=== PATIENT | female | born 1965 | race Caucasian/White ===

== ENCOUNTER 2020-11-22 11:48 | Emergency (ER) | payer OTHER ==
[~2020-11-22] VITALS: Ht 162.5 cm; Wt 59.0 kg
[2020-11-22] MEDS ORDERED: CEPHALEXIN500 M1 PO (15:35)
[2020-11-22] MEDS ORDERED: SEPTDS PO (15:35)
[2020-11-22] MEDS ORDERED: HYDROCODONE-AC1 EAC1 PO (15:42)
== END 2020-11-22 15:36 | disposition home or self-care (01) ==
LOC: ED 11:48
DX: S90.911D Unspecified superficial injury of right ankle, subsequent encounter (principal); X58.XXXD Exposure to other specified factors, subsequent encounter; Z53.29 Procedure and treatment not carried out because of patient's decision for other reasons